=== PATIENT | female | born 1965 | race Caucasian/White ===

== ENCOUNTER 2017-10-05 10:03 | Emergency (ER) | payer MEDICAID ==
[~2017-10-05] VITALS: Ht 167.6 cm; Wt 75.0 kg
[2017-10-05 10:04] VITALS: BP 195/102; PULSE 116; RESP 17; TEMP 98.1; O2SAT 99
[2017-10-05 10:12] VITALS: BP_SYST 195; BP_SYST 212; BP_DIAS 102; BP_DIAS 134
[2017-10-05 10:19] VITALS: BP 182/100; PULSE 95; RESP 15; O2SAT 100
--- NOTE | 2017-10-05 10:33 | PD ---
HPI Chief Complaint: Headache Time Seen by Provider: 10:30 Travel History International Travel<30 days: No Contact w/Intl Traveler<30days: No Traveled to known affect area: No History of Present Illness HPI 52-year-old female came to the emergency room with history of 3 weeks of headache that has gotten worse in past 4 days. Patient says she has been taking lwtw-eaf-mpxgxcm Excedrin Migraine, BC powder etc. and initially she was feeling better with those but now the headache has been worse and currently is 10 out of 10. He points to her entire head. She says she has been feeling weak and having trouble working at her job because of it. She has been nauseous but no vomiting. Patient was hypertensive upon arrival in triage but the blood pressure seems to have subsided now. No history of fever or chills. No history of neck rigidity. No known sick contacts. Patient does not usually suffer from headaches. This is something unusual for her. She does work in a stressful job. She claims to be healthy otherwise and does not have a primary care doctor. [facility] Past Medical History Narrative Medical List of her past medical, surgical, social and family history was reviewed from the nursing note. Medical History: Denies Significant Hx Tetanus Vaccination: < 5 Years Influenza Vaccination: No ?: Not Menopausal: Yes Past Surgical History Abdominal Surgery: Yes (TUMOR REMOVAL FROM STOMACH ) Section: Yes Social History Alcohol Use: Yes (OCC) Tobacco Use: No Substance Use: No Allergies-Medications (Allergen,Severity, Reaction): Coded Allergies: promethazine (Verified Adverse Reaction, Severe, vomiting, 10/05/17) Comments List of her allergies reviewed from the nursing note. Reported Meds & Prescriptions Reported Meds & Active Scripts Active Fioricet (Fadtuvtkqu-Sfdlstxyhdfjm-Pshnsgdj) 50-300-40 Mg Cap 1-2 Cap PO Q6H PRN Narrative Medication List of her home medications reviewed from the nursing note. Review of Systems Except as stated in HPI: all other systems reviewed are Neg HENT: Positive: Headaches Neurologic: Positive: Weakness Physical Exam Narrative GENERAL: Awake, alert, anxious, mild distress SKIN: Focused skin assessment warm/dry. HEAD: Atraumatic. Normocephalic. EYES: Pupils equal and round. No scleral icterus. No injection or drainage. ENT: No nasal bleeding or discharge. Mucous membranes pink and moist. NECK: Trachea midline. No JVD. Neck is supple CARDIOVASCULAR: Regular rate and rhythm. No murmur appreciated. RESPIRATORY: No accessory muscle use. Clear to auscultation. Breath sounds equal bilaterally. GASTROINTESTINAL: Abdomen soft, non-tender, nondistended. Hepatic and splenic margins not palpable. MUSCULOSKELETAL: No obvious deformities. No clubbing. No cyanosis. No edema. NEUROLOGICAL: Awake and alert. No obvious cranial nerve deficits. Motor grossly within normal limits. Normal speech. PSYCHIATRIC: Appropriate mood and affect; insight and judgment normal. Data Data Last Documented VS Orders Orders Electrocardiogram (10/05/17 ) Complete Blood Count With Diff (10/05/17 10:36) Basic Metabolic Panel (Bmp) (10/05/17 10:36) Ct Brain W/O Iv Contrast(Rout) (10/05/17 10:36) Ecg Monitoring (10/05/17 10:36) Iv Access Insert/Monitor (10/05/17 10:36) Oximetry (10/05/17 10:36) Sodium Chloride 0.9% Flush (Ns Flush) (10/05/17 10:45) Metoclopramide Inj (Reglan Inj) (10/05/17 10:45) Sodium Chlor 0.9% 1000 Ml Inj (Ns 1000 M (10/05/17 10:36) Ketorolac Inj (Toradol Inj) (10/05/17 12:45) Ed Discharge Order (10/05/17 13:44) Labs Laboratory Tests Test 10/05/17 10:40 10/05/17 11:30 White Blood Count 7.2 TH/MM3 Red Blood Count 4.90 MIL/MM3 Hemoglobin 14.9 GM/DL Hematocrit 44.0 % Mean Corpuscular Volume 89.7 FL Mean Corpuscular Hemoglobin 30.5 PG Mean Corpuscular Hemoglobin Concent 33.9 % Red Cell Distribution Width 14.2 % Platelet Count 233 TH/MM3 Mean Platelet Volume 8.1 FL Neutrophils (%) (Auto) 80.2 % Lymphocytes (%) (Auto) 8.2 % Monocytes (%) (Auto) 4.8 % Eosinophils (%) (Auto) 6.7 % Basophils (%) (Auto) 0.1 % Neutrophils # (Auto) 5.8 TH/MM3 Lymphocytes # (Auto) 0.6 TH/MM3 Monocytes # (Auto) 0.3 TH/MM3 Eosinophils # (Auto) 0.5 TH/MM3 Basophils # (Auto) 0.0 TH/MM3 CBC Comment DIFF FINAL Differential Comment Blood Urea Nitrogen 10 MG/DL Creatinine 0.63 MG/DL Random Glucose 93 MG/DL Calcium Level 8.5 MG/DL Sodium Level 139 MEQ/L Potassium Level 3.8 MEQ/L Chloride Level 106 MEQ/L Carbon Dioxide Level 25.7 MEQ/L Anion Gap 7 MEQ/L Estimat Glomerular Filtration Rate 99 ML/MIN MDM Medical Decision Making Medical Screen Exam Complete: Yes Emergency Medical Condition: Yes Medical Record Reviewed: Yes Interpretation(s) Twelve-lead EKG was reviewed by me. Normal sinus rhythm, normal axis, LVH by voltage criteria, PVCs, nonspecific ST-T wave changes. Differential Diagnosis Arachnoid hemorrhage, intracranial tumor, migraine headache, tension headache, cluster headache Narrative Course 2:02 PM patient initially was given Reglan and IV fluid bolus. After an hour of the medications I reassessed her and she said that her pain was 8 out of 10 but the nausea subsided. CT scan at this point was resulted as negative for any head bleed. Labs were within normal limits. I ordered IV Toradol and reassessed in another hour and patient now says that her headache is completely gone. Will discharge her home. I gave her instructions and answered all her questions to the best of my ability. Diagnosis Primary Impression: Tension headache Referrals: [facility] Departure Forms: Tests/Procedures, Work Release Enter return to work date: Oct 08, 2017 Additional Instructions: Try to avoid diet like chocolate, cheese, wine, cigarette since they worsen your headache. Coffee or caffeinated beverages would be helpful. Stay away from television, computer screen, Smart phone screens or books for next couple of days. Have regular sleep patterns. Return to the ER if the condition worsens or any other new concerns. You should have a primary care physician and follow-up with them for regular health issues. Med/Other Pt SpecificInfo: Prescription(s) given Scripts Zhxskssihc-Vvbrywpxqtxxx-Dynihznz (Fioricet) 50-300-40 Mg Cap 1-2 CAP PO Q6H Y for HEADACHE, #20 CAP 0 Refills Prov: Kevin Eaton MD 10/05/17 Disposition: 01 DISCHARGE HOME Condition: Stable Kevin Eaton R. MD Oct 05, 2017 10:33
[2017-10-05] MEDS ORDERED: SODIUM CHLOR 0.9% 1000 ML INJ 1,000 ML IV ONE (10:36)
[2017-10-05] MEDS ORDERED: SODIUM CHLORIDE 0.9% FLUSH 10 ML FLUSH IVF PRN (10:45)
[2017-10-05] MEDS ORDERED: METOCLOPRAMIDE HCL 10 MG/2 ML VIAL IVP ONE (10:45)
[2017-10-05 11:05] LABS: AUTOMATED NEUTROPHIL # 5.8 TH/MM3 (1.8-7.7); BASOPHIL % 0.1 % (0.0-2.0); EOSINOPHIL # 0.5 TH/MM3 (0-0.4); EOSINOPHIL % 6.7 % (0.0-4.0); HEMO FLAGS DIFF FINAL; LYMPH % 8.2 % (9.0-44.0); LYMPHOCYTE # 0.6 TH/MM3 (1.0-4.8); MEAN CELL VOLUME 89.7 FL (80.0-100.0); MEAN CORPUSCULAR HEMOGLOBIN 30.5 PG (27.0-34.0); MEAN CORPUSCULAR HGB CONC 33.9 % (32.0-36.0); MONO % 4.8 % (0.0-8.0); NEUT % 80.2 % (16.0-70.0); PLATELET COUNT 233 TH/MM3 (150-450); RED CELL DISTRIBUTION WIDTH 14.2 % (11.6-17.2); WHITE BLOOD COUNT 7.2 TH/MM3 (4.0-11.0)
[2017-10-05 11:07] VITALS: BP 159/78; PULSE 88; RESP 17; O2SAT 98
--- NOTE | 2017-10-05 11:21 | RADRPT ---
EXAM DATE/TIME: 10/05/2017 10:53 [facility] COMPARISON: No previous studies available for comparison. INDICATIONS : Cephalgia x 3 weeks. RADIATION DOSE: 36.36 CTDIvol (mGy) MEDICAL HISTORY : None SURGICAL HISTORY : section. ENCOUNTER: Initial ACUITY: 3 weeks PAIN SCALE: 7/10 LOCATION: cranial TECHNIQUE: Multiple contiguous axial images were obtained of the head. Using automated exposure control and adj ustment of the mA and/or kV according to patient size, radiation dose was kept as low as reasonably a chievable to obtain optimal diagnostic quality images. DICOM format image data is available electro nically for review and comparison. FINDINGS: CEREBRUM: The ventricles are normal for age. No evidence of midline shift, mass lesion, hemorrhage or acute in farction. No extra-axial fluid collections are seen. POSTERIOR FOSSA: The cerebellum and brainstem are intact. The 4th ventricle is midline. The cerebellopontine angle i s unremarkable. EXTRACRANIAL: The visualized portion of the orbits is intact. Mild mucoperiosteal thickening in the lower ethmoid a ir cells bilaterally SKULL: The calvaria is intact. No evidence of skull fracture. CONCLUSION: 1. Mild chronic sinusitis in the lower ethmoid air cells. 2. Otherwise negative. Celio Balderrama MD on October 05, 2017 at 11:17 Board Certified Radiologist. This report was verified electronically.
[2017-10-05 12:26] VITALS: BP_SYST 151; BP_SYST 159; BP_DIAS 69; BP_DIAS 78; PULSE 90; RESP 14; O2SAT 97
[2017-10-05 12:29] LABS: BICARBONATE 25.7 MEQ/L (21.0-32.0); POTASSIUM 3.8 MEQ/L (3.5-5.1)
[2017-10-05] MEDS ORDERED: KETOROLAC TROMETHAMINE 30 MG/ML (IVP) VIAL IV PUSH ONE (12:45)
[2017-10-05] MEDS ORDERED: BUTA1CAP PO (13:47)
[2017-10-05 14:03] VITALS: BP 144/65
--- NOTE | 2017-10-05 14:47 | EKG ---
Date Performed: 10/05/2017 Time Performed: 10:13:22 PTAGE: 52 years EKG: SINUS TACHYCARDIA WITH OCCASIONAL VENTRICULAR PREMATURE COMPLEXES POSSIBLE RIGHT ATRIAL ENL ARGEMENT POSSIBLE LEFT ATRIAL ENLARGEMENT POSSIBLE LEFT VENTRICULAR HYPERTROPHY ABNORMAL ECG NO PREVIOUS TRACING DOCTOR: Alexx Juárez Interpretating Date/Time 10/05/2017 14:46:44
== END 2017-10-05 14:05 | disposition home or self-care (01) ==
LOC: NEPC 10:03
DX: G44.209 Tension-type headache, unspecified, not intractable (principal); R11.0 Nausea; R00.0 Tachycardia, unspecified
CPT/HCPCS: 70450; 80048; 85025; 93005; 96361; 96374; 96375; 99285; J1885; J2765; J7030

== ENCOUNTER 2018-03-16 17:42 | Inpatient (IN) | payer OTHER ==
[~2018-03-16] VITALS: Ht 167.6 cm; Wt 70.0 kg
[2018-03-16] VITALS (9 sets, daily range): BP systolic 144–201; BP diastolic 71–102; PULSE 64–99; RESP 14–20; TEMP 98–98.5; O2SAT 94–99
[~2018-03-16 17:42] MED LIST: BUTA1CAP PO
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
[2018-03-16 18:54] LABS: AUTOMATED NEUTROPHIL # 3.7 TH/MM3 (1.8-7.7); BASOPHIL % 0.3 % (0.0-2.0); EOSINOPHIL # 0.2 TH/MM3 (0-0.4); EOSINOPHIL % 3.7 % (0.0-4.0); HEMATOCRIT 40.7 % (35.0-46.0); HEMOGLOBIN 13.3 GM/DL (11.6-15.3); LYMPH % 31.6 % (9.0-44.0); LYMPHOCYTE # 2.1 TH/MM3 (1.0-4.8); MEAN CELL VOLUME 88.7 FL (80.0-100.0); MEAN CORPUSCULAR HEMOGLOBIN 29.1 PG (27.0-34.0); MEAN CORPUSCULAR HGB CONC 32.8 % (32.0-36.0); MEAN PLATELET VOLUME 8.4 FL (7.0-11.0); MONO % 7.2 % (0.0-8.0); MONOCYTE # 0.5 TH/MM3 (0-0.9); NEUT % 57.2 % (16.0-70.0); PLATELET COUNT 254 TH/MM3 (150-450); RED BLOOD COUNT 4.59 MIL/MM3 (4.00-5.30); RED CELL DISTRIBUTION WIDTH 14.3 % (11.6-17.2); WHITE BLOOD COUNT 6.5 TH/MM3 (4.0-11.0)
[2018-03-16] MEDS ORDERED: IOHEXOL 350 MG/ML 10 ML VIAL (for RAD DIAG) IVCONTRAST ONE (18:59)
[2018-03-16] MEDS ORDERED: MORPHINE SULFATE 4 MG/ML INJ IV PUSH ONE (19:00)
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
[2018-03-16] MEDS ORDERED: LABETALOL HCL 100 MG/20 ML VIAL IV PUSH ONE (19:30)
[2018-03-16 19:34] LABS: PROTHROMBIN TIME - PATIENT 9.8 SEC (9.8-11.6)
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
[2018-03-16] MEDS ORDERED: DEXTROSE 50% IN WATER 50 ML VIAL(D50) IV PUSH PRN (20:30)
[2018-03-16] MEDS ORDERED: SODIUM CHLORIDE 0.9% FLUSH 10 ML FLUSH IV FLUSH PRN (20:30)
[2018-03-16] MEDS ORDERED: GLUCAGON 1 MG/ML VIAL OTHER PRN (20:30)
[2018-03-16] MEDS: INSULIN ASPART SUPPLEMENTAL SCALE SQ SCH (21:00)
[2018-03-16 21:42] LABS: HEMOGLOBIN A1C 5.2 % (4.3-6.0)
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
[2018-03-16] MEDS ORDERED: NALOXONE HCL 0.4 MG/ML AMP IV PUSH PRN (23:30)
[2018-03-16] MEDS ORDERED: ENALAPRILAT 1.25 MG/ML VIAL IV PUSH PRN (23:30)
[2018-03-16] MEDS ORDERED: ACETAMINOPHEN/HYDROcodone 325 MG/5 MG TAB PO PRN (23:30)
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
[2018-03-16] MEDS ORDERED: ASPIRIN 81 MG CHEW TAB CHEW ONE (23:45)
[2018-03-17] VITALS (10 sets, daily range): BP systolic 129–153; BP diastolic 63–73; PULSE 63–80; RESP 16–20; TEMP 97.5–98.2; O2SAT 95–99
[2018-03-17] MEDS: ACETAMINOPHEN/HYDROcodone 325 MG/7.5 MG TAB PO PRN ×3 (00:08→22:33)
[2018-03-17] MEDS: SODIUM CHLORIDE 0.9% FLUSH 10 ML FLUSH IV FLUSH SCH ×3 (00:09→22:33)
[2018-03-17 06:41] LABS: CHOLESTEROL/ HDL RATIO 2.05 RATIO; HDL CHOLESTEROL 99.1 MG/DL (40.0-60.0)
[2018-03-17] MEDS: INSULIN ASPART SUPPLEMENTAL SCALE SQ SCH (08:26)
[2018-03-17] MEDS: ASPIRIN 81 MG CHEW TAB CHEW SCH (08:27)
[2018-03-17] MEDS ORDERED: SODIUM CHLOR 0.9% 1000 ML INJ 1,000 ML IV SCH (09:00)
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
--- NOTE | 2018-03-17 10:08 | MG ---
cc: Kaity Mendoza MD DATE OF : 1965 AGE: [age] years old. REFERRING PHYSICIAN: MD Toby ROOM: F. EEG NUMBER: [id number] NOTE: Hyperventilation and photic done. Complaining of a headache. Awake, drowsy and sleep study. MRI: No acute findings. MEDICATIONS: On aspirin and Fletcher. DESCRIPTION OF RECORD: The patient has an overall background alpha of 8 to 8.5 Hz, 20-40 microvolt, symmetrical background. Some attenuation. She does become drowsy. EKG looks sinus with some PVCs at times, overall normal activity versus theta frequency. The patient is in and out of a drowsy sleep state. No epileptic activity. Hyperventilation was not done because of complaining of headache. IMPRESSION: Overall normal-appearing EEG. Benign slowing may be due to somnolence or medicine effect, but no epileptic activity. Kaity Mendoza MD DF/JOHNSON , 09:52 AM , 10:07 AM
[2018-03-17 11:08] LABS: AST (GOT) 21 U/L (15-37); CHOLESTEROL 204 MG/DL (120-200); TRIGLYCERIDES 81 MG/DL (42-150)
[2018-03-17 11:38] LABS: ALT (GPT) 21 U/L (10-53); CHOLESTEROL/ HDL RATIO 2.06 RATIO; FREE T4 0.95 NG/DL (0.76-1.46); HDL CHOLESTEROL 98.9 MG/DL (40.0-60.0); LDL CHOLESTEROL 89 MG/DL (0-99)
[2018-03-17 11:49] LABS: FOLATE GREATER THAN 20.0 NG/ML (3.1-17.5)
[2018-03-17] MEDS ORDERED: GADODIAMIDE PF 287 MG/ML 5 ML VIAL (for RAD MRI) IVCONTRAST ONE (12:26)
[2018-03-17] MEDS: CYCLOBENZAPRINE HCL 10 MG TAB PO SCH ×2 (14:34→22:32)
[2018-03-17] MEDS: MORPHINE SULFATE 4 MG/ML INJ IV PUSH PRN ×2 (14:35→20:04)
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
--- NOTE | 2018-03-17 19:53 | EKG ---
Date Performed: 03/16/2018 Time Performed: 18:54:10 PTAGE: 53 years EKG: Sinus rhythm POSSIBLE LEFT ATRIAL ENLARGEMENT BORDERLINE ECG Since the PREVIOUS TRACING , no significant change noted PREVIOUS TRACIN10/05/2017 10.13 DOCTOR: Narendra Landeros Interpretating Date/Time 03/17/2018 19:52:15
[2018-03-18 04:23] VITALS: BP 109/56; PULSE 59; RESP 16; TEMP 97.9; O2SAT 98
[2018-03-18] MEDS: CYCLOBENZAPRINE HCL 10 MG TAB PO SCH ×2 (04:36→15:32)
[2018-03-18] MEDS: ACETAMINOPHEN/HYDROcodone 325 MG/7.5 MG TAB PO PRN ×3 (04:36→12:52)
--- NOTE | 2018-03-18 06:55 | HHI.PR ---
Objective Vital Signs Date Time Temp Pulse Resp B/P (MAP) Pulse Ox O2 Delivery O2 Flow Rate FiO2 03/18/18 06:01 21 03/18/18 05:36 16 03/18/18 04:23 97.9 59 16 109/56 (73) 98 03/17/18 23:01 97.7 67 16 151/67 (95) 97 03/17/18 23:00 64 03/17/18 20:09 16 03/17/18 19:32 98.2 80 16 141/65 (90) 96 03/17/18 16:00 98.1 70 16 130/69 (89) 97 03/17/18 15:01 68 03/17/18 12:00 97.7 65 18 145/73 (97) 99 03/17/18 08:05 65 03/17/18 07:47 97.5 63 16 129/63 (85) 95 Result Diagram: 03/16/18 6600 Objective Remarks moves all wel r hs loss gone Assessment and Plan Assessment and Plan imp mri and eeg nl echo pend hyper lab pend could go home on 81 asa if echo nl i will fu labs Connor Luis MD March 18, 2018 06:55
[2018-03-18 07:45] VITALS: O2SAT 97
[2018-03-18 07:46] VITALS: PULSE 79
[2018-03-18 07:56] VITALS: BP 113/59; PULSE 58; RESP 18; TEMP 98.4; O2SAT 98
[2018-03-18] MEDS ORDERED: CYCL10TA PO (08:35)
[2018-03-18] MEDS ORDERED: HYDR-3516 PO (08:35)
[2018-03-18] MEDS ORDERED: ASPI81 CHEW (08:35)
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
[2018-03-18] MEDS: SODIUM CHLORIDE 0.9% FLUSH 10 ML FLUSH IV FLUSH SCH (08:43)
[2018-03-18] MEDS: ASPIRIN 81 MG CHEW TAB CHEW SCH (08:43)
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
[2018-03-18 11:11] VITALS: PULSE 65
[2018-03-18 11:17] VITALS: BP 124/67; PULSE 75; RESP 18; TEMP 97.3; O2SAT 98
[2018-03-18 15:54] LABS: CARDIOLIPIN IGG AB <9.4 GPL; CARDIOLIPIN IGM AB <9.4 MPL
--- NOTE | 2018-03-18 17:35 | ECHRPT ---
Indication: CVA/TIA CONCLUSIONS The left ventricular systolic function is normal with an estimated ejection fraction in the range of 55-60%. Normal left ventricular size. Wall thickness is measured at the upper limits of normal. No regional wall motion abnormalities are present. Trace mitral valve regurgitation. Trace aortic valve regurgitation. There is trace tricuspid valve regurgitation. The estimated pulmonary arterial pressure is 25.2 mmHg. BP: / HR: Rhythm: Sinus MEASUREMENTS (Male / Female) Normal Values Technical Quality:Good 2D ECHO LV Diastolic Diameter PLAX 4.7 cm 4.2 - 5.9 / 3.9 - 5.3 cm LV Systolic Diameter PLAX 3.3 cm IVS Diastolic Thickness 1.2 cm 0.6 - 1.0 / 0.6 - 0.9 cm LVPW Diastolic Thickness 1.2 cm 0.6 - 1.0 / 0.6 - 0.9 cm LV Relative Wall Thickness 0.5 RV Internal Dim ED PLAX 2.5 cm LVOT Diameter 2.0 cm LA Systolic Diameter LX 2.9 cm 3.0 - 4.0 / 2.7 - 3.8 cm LV Ejection Fraction MOD 4C 54.8 % LV Ejection Fraction 4C AL 58.8 % M-MODE Aortic Root Diameter MM 2.6 cm LA Systolic Diameter MM 2.1 cm LA Ao Ratio MM 0.8 AV Cusp Separation MM 1.9 cm DOPPLER AV Peak Velocity 125.0 cm/s AV Peak Gradient 6.3 mmHg LVOT Peak Velocity 82.4 cm/s LVOT Peak Gradient 2.7 mmHg AV Area Cont Eq pk 2.1 cm MV Area PHT 2.2 cm Mitral E Point Velocity 40.5 cm/s Mitral A Point Velocity 44.4 cm/s Mitral E to A Ratio 0.9 LV E' Lateral Velocity 8.0 cm/s Mitral E to LV E' Lateral Ratio 5.1 LV E' Septal Velocity 7.7 cm/s Mitral E to LV E' Septal Ratio 5.3 TR Peak Velocity 195.0 cm/s TR Peak Gradient 15.2 mmHg Right Atrial Pressure 10.0 mmHg Pulmonary Artery Systolic Pressu 25.2 mmHg Right Ventricular Systolic Press 25.2 mmHg PV Peak Velocity 76.0 cm/s PV Peak Gradient 2.3 mmHg FINDINGS LEFT VENTRICLE The left ventricular systolic function is normal with an estimated ejection fraction in the range of 55-60%. Normal left ventricular size. Wall thickness is measured at the upper limits of normal. No regional wall motion abnormalities are present. RIGHT VENTRICLE Normal right ventricular size and systolic function. LEFT ATRIUM The left atrial size is normal. RIGHT ATRIUM The right atrial size is normal. ATRIAL SEPTUM Normal atrial septal thickness without atrial level shunting by limited color doppler interrogation. AORTA The aortic root and proximal ascending aorta are normal in size on limited imaging. MITRAL VALVE Structurally normal mitral valve. Trace mitral valve regurgitation. AORTIC VALVE Trileaflet aortic valve. Trace aortic valve regurgitation. TRICUSPID VALVE Structurally normal tricuspid valve. There is trace tricuspid valve regurgitation. The estimated pulmonary arterial pressure is 25.2 mmHg. PULMONARY VALVE No pulmonary valve regurgitation or stenosis. VESSELS The inferior vena cava is normal in size. PERICARDIUM No pericardial effusion. Narendra Landeros MD (Electronically Signed) Final Date:18 Mar 2018 17:34
[2018-03-19 13:53] LABS: DRVVT 1:1 MIX ND (CORRECTED); DRVVT CONFIRM ND (NEGATIVE); HEXAGONAL PHASE CONFIRM ND (NEGATIVE)
[2018-03-19 19:52] LABS: FACTOR VIII(8) ACTIVITY 68 (50-180)
[2018-03-20 03:49] LABS: ANTI-THROMBIN III ACT 115 (80-120)
== END 2018-03-18 18:00 | disposition home or self-care (01) | DRG 93 ==
LOC: NEPD 17:42 → NEDA 20:30 → NEPFCDU 22:24
PROVIDERS: ADMIT Hospitalist; ATTEND Hospitalist
DX: R20.0 Anesthesia of skin (principal); I10 Essential (primary) hypertension; R51 Headache; Z86.718 Personal history of other venous thrombosis and embolism; V89.2XXA Person injured in unspecified motor-vehicle accident, traffic, initial encounter
CPT/HCPCS: 70450; 70496; 70498; 70544; 70551; 70553; 71260; 72126; 72129; 72132; 74177; 80048; 80061; 81240; 81241; 81291; 82607; 82746; 83036; 83921; 84425; 84439; 84443; 84450; 84460; 84702; 85025; 85240; 85300; 85303; 85306; 85610; 85613; 85652; 85730; 86038; 86147; 86592; 86850; 86900; 86901; 93005; 93306; 95819; 96374; 96375; A9579; J2270; Q9967